=== PATIENT | female | born 1985 | race Caucasian/White ===

== ENCOUNTER 2017-05-24 09:24 | Emergency (ER) | payer OTHER ==
[~2017-05-24] VITALS: Ht 154.9 cm; Wt 68.2 kg
[~2017-05-24 09:24] MED LIST: BACT800T5 PO; CEPH-460 PO; PERC5TAB12 PO
[2017-05-24 09:28] VITALS: BP 97/70; PULSE 82; RESP 16; TEMP 98; O2SAT 98
--- NOTE | 2017-05-24 09:36 | PD ---
HPI Chief Complaint: ENT Complaint Time Seen by Provider: 09:31 Travel History International Travel<30 days: No Contact w/Intl Traveler<30days: No Traveled to known affect area: No History of Present Illness HPI C/O SORE THROAT X 1 DAY, NOTED A WHITE SPOT ON TONSIL, DENIES FEVER, TOLERATING FLUIDS, PAIN WORSENS WHEN SHE SWALLOWS PFSH Past Medical History Hx Anticoagulant Therapy: No Asthma: Yes Diabetes: No Diminished Hearing: No Genitourinary: Yes (INTERSTITIAL CYSTITIS) Reproductive: Yes (HSV II) Respiratory: Yes (ASTHMA) ?: Not : 3 Para: 3 Tubal Ligation: Yes Past Surgical History Neurologic Surgery: Yes (SPINAL TUMOR REMOVAL (BENIGN-FATTY)) Social History Alcohol Use: Yes (RARE WINE) Tobacco Use: Yes (1 ppd) Substance Use: No Allergies-Medications (Allergen,Severity, Reaction): Coded Allergies: *MDRO Multi-Drug Resistant Organism (Verified Adverse Reaction, Unknown, ) 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 HEAD: Atraumatic. Normocephalic. EYES: Pupils equal and round. No scleral icterus. No injection or drainage. ENT: No nasal bleeding or discharge. Mucous membranes pink and moist. LEFT TONSILLAR EXUDATE ALONG WITH ERYTHEMATOUS OROPHARYNX NECK: Trachea midline. No JVD. CARDIOVASCULAR: Regular rate and rhythm. RESPIRATORY: No accessory muscle use. Clear to auscultation. Breath sounds equal bilaterally. GASTROINTESTINAL: Abdomen soft, non-tender, nondistended. Hepatic and splenic margins not palpable. MUSCULOSKELETAL: Extremities without clubbing, cyanosis, or edema. No obvious deformities. NEUROLOGICAL: Awake and alert. No obvious cranial nerve deficits. Motor grossly within normal limits. Five out of 5 muscle strength in the arms and legs. Normal speech. PSYCHIATRIC: Appropriate mood and affect; insight and judgment normal. Data Data Last Documented VS Vital Signs Date Time Temp Pulse Resp B/P Pulse Ox O2 Delivery O2 Flow Rate FiO2 05/24/17 09:28 98.0 82 16 97/70 98 MDM Medical Decision Making Medical Screen Exam Complete: Yes Emergency Medical Condition: Yes Medical Record Reviewed: Yes Differential Diagnosis PHARYNGITIS VIRAL V BACTERIAL Narrative Course (CLINCALLY NONVIRAL WITH UNILATERAL ANT LAD, NO RUNNY NOSE, COUGH ETC) WILL TREAT WITH ABX Diagnosis Primary Impression: PHARYNGITIS Scripts Lidocaine Viscous Liq 2 % Liqd5 Ml SWISH-SWAL QID PRN (PAIN) #1 BOTTLE Ref 0 Prov:Alvaro Cummings MD 05/24/17 Amoxicillin-Clavulanate (Augmentin)875-125 Mg Tab1 Tab PO BID #20 TAB Prov:Alvaro Cummings MD 05/24/17 Disposition: 01 DISCHARGE HOME Condition: Stable Alvaro Cummings MD May 24, 2017 09:36
[2017-05-24] MEDS ORDERED: AUGM875T3 PO (09:39)
[2017-05-24] MEDS ORDERED: LIDO1SOL8 SWISH-SWAL (09:39)
== END 2017-05-24 09:56 | disposition home or self-care (01) ==
LOC: PHED 09:24
DX: J02.9 Acute pharyngitis, unspecified (principal); F17.200 Nicotine dependence, unspecified, uncomplicated
CPT/HCPCS: 99284